=== PATIENT | male | born 1975 | race African-American/Black ===

== ENCOUNTER 2016-09-28 21:31 | Emergency (ER) | payer BC ==
--- NOTE | ~2016-09-28 | CT4 ---
[facility] A Service [facility] RADIOLOGY TEXT RESULTS PATIENT: LUZMARIA LOPES LOCATION: SED : 71 UNIT #: [id number] AGE: [address]: Duane Blakely PAC SEX: M ORDER DR: [id number] [place] [id number] E MR#: [id number] Acc #: [id number] NAME: LUZMARIA LOPES : 1975 SEX: M STUDY DATE/TIME: 09/28/2016 22:41 UNIT: SED ROOM: STUDY DESCRIPTION: CT Abd and Pelv Wo Cont Attending Physician: Duane Blakely P.A.-C. Ordering Physician: Duane Blakely P.A.-C. Primary Care Physician: Enrique Galdamez M.D. MEDICAL IMAGING REPORT This report is preliminary unless electronic signature is present. EXAM CT abdomen and pelvis without contrast INDICATION Left flank pain for the past [address] of the abdomen and pelvis. This CT exam was performed with one or more of the following radiation dose reduction techniques: automatic exposure control, adjustment of mA and/or kV according to patient size, and iterative reconstruction. COMPARISON 03/30/2015 FINDINGS ABDOMEN WITHOUT CONTRAST: Included lung bases are clear. Liver, spleen, adrenal glands, pancreas, gallbladder have an unremarkable unenhanced appearance. The bowel loops are nondilated, appendix is normal. Bilateral nonobstructing renal calculi measuring up to 6 mm. There is a 1 mm calculus in the distal left ureter. There is moderate left hydronephrosis. PELVIS WITHOUT CONTRAST: No radiodense bladder calculus. No aggressive-appearing bone lesion. IMPRESSION 1. A 1 mm calculus in the distal left ureter. Moderate left hydronephrosis. [facility] A Service [facility] RADIOLOGY TEXT RESULTS PATIENT: LUZMARIA LOPES LOCATION: SED : 71 UNIT #: [id number] AGE: [address]: Duane Blakely PAC SEX: M ORDER DR: 2. Bilateral nonobstructing renal calculi. Dictated by... Yousif Diaz M.D. THIS IS AN ELECTRONICALLY VERIFIED REPORT Yousif Diaz M.D. at 09/29/2016 10:25 PM MARISELA/radha TD: 09/29/2016 00:55 JOB #: [id number] MEDICAL IMAGING REPORT Page 1 of 1
[~2016-09-28 21:31] MED LIST: AMLODIPINE BESY10 MG PO; PHENERGAN25 M1 PO; VICODIN PO; ZYRTEC10 M2 PO
[2016-09-28 22:42] LABS: URINE SOURCE CLEAN CATCH
[2016-09-28 22:44] LABS: URINE APPEARANCE CLEAR; URINE BILIRUBIN NEG (NEG); URINE BLOOD TRACE-INTACT (NEG); URINE COLOR YELLOW; URINE GLUCOSE NEG (NORM); URINE KETONE NEG (NEG); URINE LEUKOCYTE ESTERASE NEG (NEG); URINE NITRATE NEG (NEG); URINE PH 5.5 (5-8); URINE PROTEIN NEG (NEG); URINE UROBILINOGEN 0.2 MG/DL (NORM)
[2016-09-28 22:47] LABS: BASOPHIL# 0.1 X10e3 (0-0.3); BASOPHIL% 0.9 % (0-2.5); EOSINOPHIL# 0.2 X10e3 (0-0.7); EOSINOPHIL% 1.6 % (0.0-7.0); HEMOGLOBIN 14.5 gm/dL (13.0-16.0); LYMPHOCYTE# 1.9 X10e3 (1.0-3.5); LYMPHOCYTE% 19.8 % (17.0-45.0); MEAN CELL VOLUME 87.7 FL (83-96); MEAN PLATELET VOLUME 10.4 FL (6.5-11.5); MONOCYTE# 0.6 X10e3 (0-1.0); MONOCYTE% 6.5 % (3.0-12.0); NEUTROPHIL% 71.2 % (40-75); PLATELET COUNT 187 X10e3 (140-420); RED BLOOD COUNT 5.01 X10e (3.90-5.60); RED CELL DISTRIBUTION WIDTH 13.3 % (11.0-15.5); WHITE BLOOD COUNT 9.8 X10e3 (4.0-10.5)
[2016-09-28 22:49] LABS: MICRO INDICATED? YES
[2016-09-28 22:49] LABS: DIFF IND NO
[2016-09-28 22:51] LABS: CULTURE INDICATED? NO; URINE BACTERIA NEG (NEG); URINE SQUAMOUS EPITHELIAL CELL OCCAS /[HPF]
[2016-09-28 23:06] LABS: ALBUMIN SERUM 3.6 g/dL (3.5-5.0); BILIRUBIN, DIRECT 0.1 mg/dL (0.0-0.2); BILIRUBIN,INDIRECT 0.6 mg/dL (0.0-0.9); BILIRUBIN,TOTAL 0.7 mg/dL (0.2-2.0); BUN/CREATININE RATIO 8.69; CALCIUM SERUM 8.9 mg/dL (8.4-10.2); CREATININE SERUM 2.3 mg/dL (0.6-1.4); GLOM FILT RATE Estimated 39.1 mL/min (>60); POTASSIUM 3.7 mmol/L (3.5-5.1); PROTEIN TOTAL SERUM 7.5 g/dL (6.0-8.3)
== END 2016-09-29 01:24 | disposition home or self-care (01) ==
LOC: SED 21:31
PROVIDERS: Physician Assistant
DX: N13.2 Hydronephrosis with renal and ureteral calculous obstruction (principal); R79.82 Elevated C-reactive protein (CRP); I10 Essential (primary) hypertension; Z79.899 Other long term (current) drug therapy
CPT/HCPCS: 36415; 74176; 80048; 80076; 81003; 83690; 85025; 96360; 99284

== ENCOUNTER 2016-10-24 18:15 | Emergency (ER) | payer BC ==
[2016-10-24] MEDS ORDERED: SINGULAIR (18:20)
== END 2016-10-24 20:01 | disposition home or self-care (01) ==
LOC: SED 18:15
DX: S39.012A Strain of muscle, fascia and tendon of lower back, initial encounter (principal); I10 Essential (primary) hypertension; Z87.442 Personal history of urinary calculi; X58.XXXA Exposure to other specified factors, initial encounter
CPT/HCPCS: 96372; 99283; J1885

== ENCOUNTER 2016-10-28 07:53 | Emergency (ER) | payer BC ==
--- NOTE | ~2016-10-28 | CT4 ---
[facility] A Service of [facility] & [facility] RADIOLOGY TEXT RESULTS PATIENT: LUZMARIA LOPES LOCATION: SED : [birth year] UNIT #: [id number] AGE: [address]: Prudencio Burch MD SEX: M ORDER DR: [id number] [place] [id number] E MR#: [id number] Acc #: [id number] NAME: LUZMARIA LOPES : 1975 SEX: M STUDY DATE/TIME: 10/28/2016 9:02 UNIT: SED ROOM: STUDY DESCRIPTION: CT Abd and Pelv Wo Cont Attending Physician: Prudencio Burch M.D. Ordering Physician: Prudencio Burch M.D. Primary Care Physician: Enrique Galdamez M.D. MEDICAL IMAGING REPORT This report is preliminary unless electronic signature is present. EXAM Abdomen and pelvis CT, no contrast, 10/28/2016. INDICATIONS 40-year-old male with left-sided flank pain for a day. History of hypertension and kidney stones. No prior surgeries. TECHNIQUE Noncontrast abdomen and pelvis CT was performed and compared with 09/28/2016. This CT exam was performed with one or more of the following radiation dose reduction techniques: automatic exposure control, adjustment of mA and/or kV according to patient size, and iterative reconstruction. FINDINGS CT ABDOMEN Exam markedly degraded by noncontrast technique. There is rounded atelectasis/scarring in the lingula. Other scattered areas of atelectasis are present. No effusion. Aorta unremarkable. Spleen, adrenal glands, pancreas and gallbladder are unremarkable and the liver is unremarkable. There is a nonobstructing stone in the right kidney measuring up to about 4 mm. No hydronephrosis. On the left, there is an obstructing 5-6 mm stone in the proximal left ureter. There is at least moderate hydronephrotic change of the left kidney. Incidental peripelvic cyst on the left measures 19 mm, not significantly changed. The left ureter is decompressed beyond the level of the obstructing stone. CT PELVIS Bladder and prostate are within normal limits. No drainable fluid collection in the pelvis. Bowel unremarkable and the appendix is normal. Inguinal canals unremarkable. [facility]. [facility] A Service of [facility] & [facility] RADIOLOGY TEXT RESULTS PATIENT: LUZMARIA LOPES LOCATION: SED : 71 UNIT #: [id number] AGE: [address]: Prudencio Burch MD SEX: M ORDER DR: No suspicious bone lesion. IMPRESSION 1. 5-6 mm obstructing stone in the proximal third left ureter. Moderate hydronephrosis of the left kidney. 2. Nonobstructing stone in the right kidney and an incidental left renal cyst. 3. Examination otherwise demonstrates no acute finding. The appendix is normal. Dictated by... Preet Domingo M.D. THIS IS AN ELECTRONICALLY VERIFIED REPORT Preet Domingo M.D. at 10/28/2016 4:09 PM MEREDITH/jeet TD: 10/28/2016 13:08 JOB #: [id number] MEDICAL IMAGING REPORT Page 1 of 1
[~2016-10-28 07:53] MED LIST changes: +SINGULAIR
[2016-10-28 08:25] LABS: URINE APPEARANCE CLEAR; URINE BILIRUBIN NEG (NEG); URINE COLOR YELLOW; URINE GLUCOSE NEG (NORM); URINE KETONE NEG (NEG); URINE LEUKOCYTE ESTERASE NEG (NEG); URINE NITRATE NEG (NEG); URINE PROTEIN NEG (NEG); URINE SOURCE CLEAN CATCH; URINE UROBILINOGEN 0.2 MG/DL (NORM)
[2016-10-28 08:28] LABS: MICRO INDICATED? NO; URINE BLOOD NEG (NEG)
[2016-10-28 08:38] LABS: AMPHETAMINE NEG (NEG); BARBITURATES NEG (NEG); BENZODIAZEPINES NEG (NEG); COCAINE NEG (NEG); MARIJUANA NEG (NEG); OPIATES NEG (NEG); TRICYCLIC ANTIDEPRESSANTS NEG (NEG); U METHADONE NEG (NEG)
[2016-10-28 08:44] LABS: BASOPHIL# 0.1 X10e3 (0-0.3); EOSINOPHIL# 0.2 X10e3 (0-0.7); EOSINOPHIL% 2.6 % (0.0-7.0); HEMATOCRIT 44.1 % (38.0-50.0); HEMOGLOBIN 14.9 gm/dL (13.0-16.0); LYMPHOCYTE# 2.5 X10e3 (1.0-3.5); MEAN CELL VOLUME 87.3 FL (83-96); MEAN CORPUSCULAR HEMOGLOBIN 29.6 PG (28-34); MEAN CORPUSCULAR HGB CONC 33.8 g/dL (30-36); MEAN PLATELET VOLUME 10.7 FL (6.5-11.5); MONOCYTE# 0.8 X10e3 (0-1.0); MONOCYTE% 10.9 % (3.0-12.0); NEUTROPHIL# 4.1 X10e3 (1.5-7.1); NEUTROPHIL% 53.5 % (40-75); PLATELET COUNT 156 X10e3 (140-420); RED BLOOD COUNT 5.05 X10e (3.90-5.60); RED CELL DISTRIBUTION WIDTH 13.4 % (11.0-15.5); WHITE BLOOD COUNT 7.7 X10e3 (4.0-10.5)
[2016-10-28 08:51] LABS: DIFF IND NO
[2016-10-28 09:01] LABS: BILIRUBIN,TOTAL 0.9 mg/dL (0.2-2.0); CALCIUM SERUM 8.8 mg/dL (8.4-10.2); CREATININE SERUM 1.5 mg/dL (0.6-1.4); GLOM FILT RATE Estimated 65.6 mL/min (>60); PROTEIN TOTAL SERUM 7.9 g/dL (6.0-8.3)
== END 2016-10-28 10:20 | disposition home or self-care (01) ==
LOC: SED 07:53
PROVIDERS: Emergency Medicine
DX: N20.1 Calculus of ureter (principal); I10 Essential (primary) hypertension; J45.909 Unspecified asthma, uncomplicated; Z79.899 Other long term (current) drug therapy; Z91.013 Allergy to seafood
CPT/HCPCS: 36415; 74176; 80053; 80307; 81003; 85025; 96374; 96375; 99284; J1170; J1885; J2405

== ENCOUNTER → 2016-10-31 | Outpatient (CLI) | payer BC ==
--- NOTE | ~2016-10-31 | CR7 ---
[facility] A Service of [facility] RADIOLOGY TEXT RESULTS PATIENT: LUZMARIA LOPES LOCATION: [facility] : [birth year] UNIT #: [id number] AGE: [address]: Berto Simpson MD SEX: M ORDER DR: [id number] [facility] [address] [place], [place] [address] [id number] O MR#: [id number] Acc #: [id number] NAME: LUZMARIA LOPES : 1975 SEX: M STUDY DATE/TIME: 10/31/2016 13:11 UNIT: [facility] ROOM: STUDY DESCRIPTION: CR Abdomen Single AP View Attending Physician: Berto Simpson M.D. Referring Physician: Berto Simpson M.D. Ordering Physician: Berto Simpson M.D. Primary Care Physician: Enrique Galdamez M.D. MEDICAL IMAGING REPORT This report is preliminary unless electronic signature is present EXAM Frontal abdomen 10/31/2016 INDICATIONS 40-year-old male with history of ureteral calculus, left-sided abdominal pain, left-sided kidney stone. Symptoms a week. TECHNIQUE Frontal abdomen was performed. Correlation is made with CT 10/28/2016. FINDINGS There is a subtle 6 mm stone on the left at the level of L3-4. This appears to correspond to the stone on the prior CT. Both renal shadows are obscured by air and fecal material. Moderate stool burden in the colon. IMPRESSION 1. 6 mm stone at the level of L3-4 on the left likely corresponding to sunny previously demonstrated stone on CT. 2. Nonspecific but nonobstructive bowel gas pattern. Moderate stool burden. Dictated by... Preet Domingo M.D. THIS IS AN ELECTRONICALLY VERIFIED REPORT Preet Domingo M.D. at 11/02/2016 6:14 AM Maryanne TD: 11/01/2016 07:12 JOB #: [id number] [facility] A Service of [facility] RADIOLOGY TEXT RESULTS PATIENT: LUZMARIA LOPES LOCATION: [facility] #: [id number] : [birth year] UNIT #: [id number] AGE: [address]: Berto Simpson MD SEX: M ORDER DR: MEDICAL IMAGING REPORT Page 1 of 1 COPY
== END | disposition home or self-care (01) ==
LOC: CRAD 12:57
DX: N20.2 Calculus of kidney with calculus of ureter (principal); N20.0 Calculus of kidney
CPT/HCPCS: 74000